=== PATIENT | female | born 1990 | race Caucasian/White ===

== ENCOUNTER 2019-06-10 21:10 | Inpatient (IN) | payer SELFPAY ==
[2019-06-10 21:41] VITALS: BMI 33.9
[2019-06-10] MEDS ORDERED: Methylergonovine 0.2 MG/ML VIAL IM PRN (22:15)
[2019-06-10] MEDS ORDERED: Carboprost 250 MCG/ML AMP IM PRN (22:15)
[2019-06-10] MEDS ORDERED: Lidocaine 1% (PF) 30 ML VIAL SC PRN (22:15)
[2019-06-10] MEDS ORDERED: Penicillin G Potassium 5 MILL.UNITS in Sodium Chloride 0.9% 100 ML IVPB SCH (22:15)
[2019-06-10] MEDS ORDERED: Ibuprofen 800 MG TAB PO PRN (22:15)
[2019-06-10] MEDS ORDERED: Misoprostol 200 MCG TAB RC PRN (22:15)
[2019-06-10] MEDS ORDERED: NS w/ Oxytocin 10 units 500 ML IV SCH (22:15)
[2019-06-10] MEDS ORDERED: Acetaminophen 500 MG TAB PO PRN (22:18)
[2019-06-10] MEDS ORDERED: Promethazine HCl 25 MG/ML VIAL IM PRN ×2 (22:18→23:34)
[2019-06-10] MEDS ORDERED: Ondansetron PF 4 MG/2 ML Vial IVP PRN ×2 (22:18→23:34)
[2019-06-10] MEDS ORDERED: Butorphanol Tartrate 1 MG/ML VIAL SLOW IVP PRN (22:18)
[2019-06-10] MEDS ORDERED: hydrALAZINE 20 MG/ML VIAL SLOW IVP PRN (22:18)
[2019-06-10] MEDS: Lactated Ringer's 1,000 ML IV SCH (22:34)
[2019-06-10 22:38] LABS: Hemoglobin 12.1 g/dL (12.0-16.0); Mean Corpuscular HGB CONC 35.2 g/dL (32.0-36.0); Mean Corpuscular Volume 87.9 fL (78.0-98.0); Mean Platelet Volume 7.4 fL (7.4-10.4); Platelet Count 223 thou/uL (130-400); RBC Distribution Width 12.8 % (11.5-14.5); White Blood Cell (WBC) Count 11.5 thou/uL (4.8-10.8)
[2019-06-10] MEDS ORDERED: Fentanyl 4 mcg/Bup 0.1% Cadd 100 ML ONE (22:42)
[2019-06-10 23:16] LABS: Syphilis Antibody Nonreactive (Nonreactive); Syphilis Antibody Index 0.09 S/CO (<1.00 Non-Reactive)
[2019-06-10 23:33] LABS: HBSAg Index 0.15 S/CO (0-0.99); Hep B Surf Ag Non-Reactive S/CO (NonReactive)
[2019-06-10] MEDS ORDERED: ePHEDrine/0.9% NaCl/PF SYRINGE 50 mg/10 ml SLOW IVP PRN (23:34)
[2019-06-10] MEDS ORDERED: Lactated Ringer's 500 ML IV PRN (23:34)
[2019-06-10] MEDS ORDERED: diphenhydrAMINE 50 MG/ML VIAL IVP PRN (23:34)
[2019-06-10] MEDS ORDERED: Naloxone HCl 0.4 mg/ml Vial IVP PRN ×2 (23:34)
[2019-06-10] MEDS ORDERED: Acetaminophen 325 MG TAB PO PRN (23:34)
[2019-06-10] MEDS ORDERED: Communication Order-Pharmacy FS SCH (23:45)
[2019-06-10] MEDS ORDERED: Fentanyl 4 mcg/Bupivacaine 0.1% Cassette 100 ML EPIDURAL SCH (23:45)
[2019-06-11] MEDS: Lactated Ringer's 1,000 ML IV SCH ×3 (00:49→21:35)
[2019-06-11] MEDS: NS w/ Oxytocin 10 units 500 ML IV SCH ×2 (00:56→21:35)
[2019-06-11] MEDS ORDERED: Penicillin G 2.5 MILL.units 2.5 MILL.UNITS in Premix Bag 1 BAG IVPB SCH (03:00)
[2019-06-11] MEDS ORDERED: Acetaminophen/Codeine 30-300mg Tablet PO PRN ×2 (03:36)
[2019-06-11] MEDS ORDERED: Ondansetron PF 4 MG/2 ML Vial IVP PRN (03:36)
[2019-06-11] MEDS ORDERED: Bisacodyl 10 MG SUPP PR PRN (03:36)
[2019-06-11] MEDS ORDERED: hydrALAZINE 20 MG/ML VIAL SLOW IVP PRN (03:36)
[2019-06-11] MEDS ORDERED: Benzocaine-Menthol 82.5 ML CAN TOP PRN (03:36)
[2019-06-11] MEDS ORDERED: Milk Of Magnesia 30 ML UDCUP PO PRN (03:36)
[2019-06-11] MEDS ORDERED: HYDROcodone/Acetaminophen 5/325 mg Tablet PO PRN ×2 (03:36)
[2019-06-11] MEDS ORDERED: NS / Oxytocin 40 units/1000ml 1,000 ML IV SCH (03:45)
--- NOTE | 2019-06-11 03:45 | PDOC.OPDEL ---
OB Operative/Delivery Note Delivery Dr/Surgeon: Antwan Mcleod MD Pre-Delivery Diagnosis: active labor Procedure/Post Delivery Dx: spontaneous vaginal delivery Weeks gestation: 39 Anesthesia: epidural - Additional Findings/Plan Placenta delivered: spontaneous Repaired Obstetrical Laceration: other (2nd degree midline outlet laceration repaired with 2-0- chromic) Estimated blood loss: 400 Compilations/Other Findings: Tight nuchal cord x 4, requiring multiple clampings and transection prior to delivery of the shoulders. Post delivery plan: routine recovery
[2019-06-11] MEDS: NS / Oxytocin 40 units/1000ml 1,000 ML IV SCH ×2 (03:56→06:28)
[2019-06-11 04:32] LABS: Hemoglobin 10.9 g/dL (12.0-16.0); Mean Corpuscular HGB CONC 34.1 g/dL (32.0-36.0); Mean Corpuscular Hemoglobin 30.3 pg (27.0-31.0); Mean Corpuscular Volume 89.1 fL (78.0-98.0); Mean Platelet Volume 7.4 fL (7.4-10.4); Platelet Count 209 thou/uL (130-400); RBC Distribution Width 12.7 % (11.5-14.5); White Blood Cell (WBC) Count 13.3 thou/uL (4.8-10.8)
[2019-06-11] MEDS: Ibuprofen 800 MG TAB PO SCH ×3 (06:27→21:29)
[2019-06-11] MEDS ORDERED: Ferrous Sulfate 325 MG TAB PO SCH (08:00)
[2019-06-11] MEDS: Ferrous Sulfate 325 MG TAB PO SCH ×2 (08:08→15:08)
[2019-06-11] MEDS: Docusate Calcium (SURFAK) 240 MG CAP PO SCH ×2 (08:51→21:29)
[2019-06-11] MEDS ORDERED: Adacel (T-DAP) 0.5 ML SYRINGE IM ONE (09:00)
--- NOTE | 2019-06-12 05:27 | PDOC.PP ---
Post Progress Note Post Day #: 1 PO intake tolerated: yes Flatus: yes Ambulation: yes Vital Signs (12 hours) Temp Pulse Resp BP Pulse Ox 06/12/19 01:30 97.8 F 59 L 18 116/61 06/11/19 20:21 98.8 F 70 16 123/67 96 06/11/19 19:45 96 Weight Weight 95.254 kg - Physical Examination Abdominal: lochia (Normal) Result Diagrams: 06/11/19 03:58 Additional Labs: Post Labs Blood Type O NEGATIVE 06/10/19 22:53 Hep Bs Antigen Non-Reactive S/CO (NonReactive) 06/10/19 22:27
[2019-06-12] MEDS: Ibuprofen 800 MG TAB PO SCH (06:36)
[2019-06-12] MEDS: Lactated Ringer's 1,000 ML IV SCH (06:41)
[2019-06-12 08:18] VITALS: BP 113/58; TEMP 97.9
[2019-06-12] MEDS: Ferrous Sulfate 325 MG TAB PO SCH (08:26)
[2019-06-12] MEDS ORDERED: Prenatal Vitamin 1 TAB PO SCH (09:00)
[2019-06-12] MEDS: Docusate Calcium (SURFAK) 240 MG CAP PO SCH (09:14)
== END 2019-06-12 12:20 | disposition home or self-care (01) | DRG 807 ==
LOC: L&D/OP 21:10 → L&D 06-11 00:30 → 3SW 06-11 05:54
PROVIDERS: ADMIT Obstetrics & Gynecology; ATTEND Obstetrics & Gynecology
PROC: 10E0XZZ Delivery of Products of Conception, External Approach (ICD-10-PCS; principal; 2019-06-11)
PROC: 0KQM0ZZ Repair Perineum Muscle, Open Approach (ICD-10-PCS; 2019-06-11)
DX: O26.893 Other specified pregnancy related conditions, third trimester (principal); Z37.0 Single live birth; O99.824 Streptococcus B carrier state complicating childbirth; Z3A.39 39 weeks gestation of pregnancy; Z67.91 Unspecified blood type, Rh negative; O69.1XX0 Labor and delivery complicated by cord around neck, with compression, not applicable or unspecified; O70.1 Second degree perineal laceration during delivery
CPT/HCPCS: 36415; 51702; 85027; 86780; 86850; 86870; 86900; 86901; 87340; 99285; J2540; J2590; J3490

== ENCOUNTER 2023-12-29 13:49 | Outpatient (CLI) | payer OTHER | END 2023-12-29 13:50 | disposition home or self-care (01) | LOC: SCSRAD 13:49 | PROVIDERS: ATTEND Family Medicine | DX: R05.9 Cough, unspecified (principal) | CPT/HCPCS: 71046 ==